=== PATIENT | male | born 1970 | race Caucasian/White ===

== ENCOUNTER 2025-06-12 09:02 | Emergency (ER) | payer OTHER, SELFPAY ==
[2025-06-12 09:05] VITALS: BP 126/86
[2025-06-12 09:33] VITALS: BP 118/73
--- NOTE | 2025-06-12 09:37 | ED.GENMED ---
History of Present Illness
General
Chief Complaint: Abdominal Symptoms
Time Seen by Provider: 06/12/25 09:28
History of Present Illness
History of Present Illness:
54 yo male w/ hx of HTN, HLD, and diverticulitis presents to the Emergency Department for evaluation of LLQ pain beginning last night. No fevers, chills or sweats. Feels comparable to prior diverticulitis. No prior complications of divertic. No
prior abd surgeries. No meds taken for pain
Review of Systems
Review of Systems
Allergies reviewed?: Yes
All Other Systems: ROS reviewed and negative except as documented in HPI and ROS
Phy Exam
Physical Exam
Physical Exam:
GEN: Well appearing, NAD, WDWN
HEENT: Oral mucosa moist, no scleral icterus
Cardiac: Regular rate
Lung: No respiratory distress, no tachypnea
Abdomen: Focal moderate left lower quadrant tenderness, no rigidity or rebound
MSK: No gross deformity or injuries
Skin: Good color, no pallor or jaundice, no rashes
Neuro: AO x3, moves all extremities freely
Psych: Calm, cooperative
Course
Orders/Labs/Results
Orders:
Orders
06/12/25 09:36
0.9% Sodium Chloride 1000 ml [Nss] 1,000 ml IV BOLUS
Ketorolac [Toradol] 15 mg IV NOW STA
06/12/25 10:17
Complete Blood Count/With Diff Urgent
Comprehensive Metabolic Panel Urgent
06/12/25 11:09
Ampicillin/Sulbactam 3 G [Unasyn] 3 gm 0.9% Sodium Chloride 100 ml [Nss] 100 ml IV NOW
Abnormal Lab Results
06/12/25
10:17
WBC 13.5 H 10^3/uL
(4.8-10.8)
MPV 10.9 H fL
(7.4-10.4)
Abs Immat Gran (auto) 0.1 H 10^3/uL
(0-0.05)
Absolute Neuts (auto) 11.8 H 10^3/uL
(1.4-6.5)
Absolute Lymphs (auto) 0.6 L 10^3/uL
(1.2-3.4)
Absolute Monos (auto) 0.9 H 10^3/uL
(0.1-0.6)
Neutrophils % 87.8 H %
(42.2-75.2)
Lymphocytes % 4.6 L %
(20.5-51.1)
Glucose 102 H mg/dl
(70-99)
06/12/25 10:17
06/12/25 10:17
Vital Signs
Initial and Last Documented VS:
Initial Vital Signs
Temp Pulse Resp BP Pulse Ox
97.9 F 104 18 126/86 97
06/12/25 09:05 06/12/25 09:05 06/12/25 09:05 06/12/25 09:05 06/12/25 09:05
Last Documented Vital Signs
Temp Pulse Resp BP Pulse Ox
97.9 F 104 18 119/68 95
06/12/25 09:05 06/12/25 09:05 06/12/25 09:05 06/12/25 10:00 06/12/25 10:17
MDM/Problems Addressed
MDM/Problems Addressed:
History and exam are consistent with patient's prior diverticulitis. No peritoneal signs and labs are reassuring. Do not see indication for imaging at this juncture, will treat empirically with Augmentin
*Pulse Oximetry
SaO2: 97
Oxygen Mode of Delivery: Room air
Patient hypoxic: no
*Critical Care Note
Total Time (30-74mins, 75-104mins- exclusive of procedures): Not Applicable
ED Attending Note
-
Portions of this chart may have been created with voice recognition software.� Occasional wrong word or��sound alike� substitutions may have occurred due to the inherent limitations of voice recognition software.
Discharge Plan
Departure
Patient Disposition: Home (Routine Discharge)
Date of Disposition: 06/12/25
Time of Disposition: 12:14
Patient with high blood pressure during this ER visit?: No
Discharge Problem:
Diverticulitis
Instructions: Clear Liquid Diet, Diverticulitis (DC)
Prescriptions:
New
amoxicillin-pot clavulanate 875-125 mg tablet
1 tab PO BID 10 Days Qty: 20 0RF
Referrals:
Jennifer Lopez PA [Family Provider]
Activity Restrictions/Additional Instructions:
Return if symptoms worsen or you develop a fever
Interventions
Interventions:
*Risk Screen - Suicide Last Done: 06/12/25 09:09
*General Assessment Last Done: 06/12/25 09:12
*Neglect/Abuse Screening Last Done: 06/12/25 09:12
*ED- Fall Risk Assessment Last Done: 06/12/25 10:24
*ED COVID-19 Vaccine History Last Done: 06/12/25 09:13
*ED Influenza Vaccine History Last Done: 06/12/25 09:13
*Nursing Disposition Last Done: 06/12/25 12:40
DI-Rwtpdp-Eaargdtwfo Assessment Last Done: 06/12/25 10:24
Discharge Date and Time
Discharge Date/Time: 06/12/25 12:41
Print Language: [id number]
[2025-06-12 10:00] VITALS: BP 119/68
[2025-06-12] MEDS: TORADOL 15 MG IV (10:21)
[2025-06-12] MEDS: NSS 1000 IV (10:22)
[2025-06-12 10:24] VITALS: BMI 33.3
[2025-06-12 10:35] LABS: Hematocrit 44.5 % (39.0-52.0); Hemoglobin 14.8 g/dL (13.0-18.0); Mean Corp Hgb Conc. 33.3 g/dL (33.0-37.0); Mean Corpuscular Volume 89.7 fL (80.0-94.0); Nucleated Red Blood Cells % 0 % (-); Platelet Count 175 10^3/uL (130-400); Red Cell Dist. Width 13.2 % (11.5-14.5)
[2025-06-12 10:48] LABS: ALT (SGPT) 25 U/L (0-50); AST (SGOT) 24 U/L (17-59); Albumin 4.1 g/dl (3.5-5.0); Alkaline Phosphatase 64 U/L (38-126); Blood Urea Nitrogen 16 mg/dl (9-20); Calcium 9.3 mg/dl (8.4-10.2); Carbon Dioxide 28 mmol/L (22-30); Chloride 106 mmol/L (98-107); Estimated Creatinine Clearance > 125 ml/min; Glucose 102 mg/dl (70-99); Potassium 4.3 mmol/L (3.5-5.1); Sodium 138 mmol/L (135-145); Total Protein 6.8 g/dl (6.3-8.2); eGFR > 60.00
[2025-06-12] MEDS: UNASYN IV (11:41)
== END 2025-06-12 12:41 | disposition home or self-care (01) ==
LOC: EMR 09:02
PROVIDERS: Physician Assistant; EMERGENCY PHYSICIAN Emergency Medicine; FAMILY PHYSICIAN Nurse Practitioner Adult Health
DX: K57.32 Diverticulitis of large intestine without perforation or abscess without bleeding (principal); I10 Essential (primary) hypertension; E78.00 Pure hypercholesterolemia, unspecified
CPT/HCPCS: 99283; 80053; 85025